=== PATIENT | female | born 1995 | race Caucasian/White ===

== ENCOUNTER 2016-07-26 08:24 | Emergency (ER) | payer OTHER ==
[~2016-07-26] VITALS: Ht 167.6 cm; Wt 72.6 kg
[2016-07-26 08:31] VITALS: BP 144/90
--- NOTE | 2016-07-26 09:11 | ED GI/GU/ABDOMINAL COMPLAINT ---
History of Present Illness General Chief Complaint: Abdominal Pain/Flank Pain Stated Complaint: MULTIPLE COMPLAINTS: ABD PAIN HX CROHNS Source: patient Exam Limitations: no limitations Vital Signs & Intake/Output Vital Signs & Intake/Output ED Intake and Output 07/27 0000 07/26 1200 Intake Total Output Total Balance Patient 160 lb Weight Weight Reported by Patient Measurement Method Allergies Coded Allergies: shellfish derived (Severe, ANAPHYLAXIS 07/26/16) Penicillins (Intermediate, RASH 07/26/16) morphine (Intermediate, HIVES 07/26/16) Triage Note: TRIAGE: 20 Y/O FEMALE PRESENTS C/O ABDOMINAL PAIN WITH HISTORY OF CROHNS. PATIENT REPORTS RED BLOOD ON TOILET PAPER WHILE WIPING AFTER BOWEL MOVEMENT. REPORTS 12/08 RIGHT LOWER ABDOMINAL PAIN SINCE THIS MORNING. HISTORY OF EPILEPSY, SEIZURES - TAKES DILANTIN. GOES TO [facility] FOR SEIZURE STUDIES. Triage Nurses Notes Reviewed? yes ? N Is pt currently ? No HPI: Patient presents for evaluation of right-sided abdominal pain that began about 2 days ago. Patient states as a severe sharp constant pain. She states she's also been having "a lot" of diarrhea that looks like "coffee grounds" and "a lot " of vomiting. She stated she had a fever 202 yesterday but no other associated cold symptoms. She took Tylenol for the fever and has been afebrile today. She was recently in [facility] as a workup for seizures. She states she was "just discharged" from a 5 day hospital stay. She contacted her GI specialist Dr. Kim in [place] and was told to go to the emergency department for evaluation. Past History Travel History Traveled to [place] past 21 day No Medical History Any Pertinent Medical History? see below for history Neurological: EPILEPSY Gastrointestinal: Crohn's disease Surgical History Surgical History: non-contributory Psychosocial History What is your primary language Citizen [place] Tobacco Use: Never used ETOH Use: denies use Illicit Drug Use: denies illicit drug use Family History Hx Contributory? No Review of Systems Review of Systems Constitutional: Reports: no symptoms. EENTM: Reports: no symptoms. Respiratory: Reports: no symptoms. Cardiovascular: Reports: no symptoms. GI: Reports: see HPI. Genitourinary: Reports: no symptoms. Musculoskeletal: Reports: no symptoms. Skin: Reports: no symptoms. Neurological/Psychological: Reports: no symptoms. Hematologic/Endocrine: Reports: no symptoms. Immunologic/Allergic: Reports: no symptoms. All Other Systems: Reviewed and Negative Physical Exam Physical Exam Gastrointestinal: see below Comments: Gen.: Well-nourished, well-developed, no acute respiratory distress. Head: Normocephalic, atraumatic. Eyes: Normal inspection bilaterally Ears: Normal inspection bilaterally Nose: Normal inspection Throat/mouth : Moist mucosa Neck: Supple, full range of motion, no goiter Heart: Regular rate and rhythm, no murmurs rubs or gallops Lungs: Clear to auscultation bilaterally with normal air entry Chest: Nontender Back: Normal range of motion Abdomen: Soft, right lower quadrant tenderness without rebound or guarding, nondistended, normal bowel sounds Extremities: Normal range of motion grossly, equal radial pulses, no cyanosis clubbing or edema Neurologic: Cranial nerves grossly intact, speech is clear Skin: warm and dry Psychiatric: Calm, cooperative, no apparent delusions or hallucinations Core Measures ACS in differential dx? No Severe Sepsis Present: No Septic Shock Present: No Progress Differential Diagnosis: appendicitis, inflamm bowel dis, pancreatitis, perforated viscous, SBO Plan of Care: PT LEFT AMA. URGED TO FOLLOW UP WITH HER DOCTORS MAXI. Initial ED EKG: none Comments: 07/26/2016 9:18:36 AM brett is now refusing an evaluation. I've advised her that if she has acute appendicitis that she could suffer perforation peritonitis and from overwhelming infection. She also stated that she was unable to take her seizure medications because of nausea and vomiting and I have pointed out that she now is at risk of having seizures which could also prove fatal. When I asked why she has decided against the emergency department evaluation she states that "I feel I can handle it". The address we have on our system is her mailing address. She states she is currently staying with her family in [place] and her home address is in [place]. She states she can take a bus home. Departure Departure Disposition: LEFT AGAINST MEDICAL ADVICE Condition: Stable Clinical Impression Primary Impression: Abdominal pain Qualifiers: Abdominal location: right lower quadrant Qualified Code: R10.31 - Right lower quadrant pain Referrals: PATIENT HAS NO PRIMARY CARE DR (PCP/Family) Additional Instructions: You are leaving the emergency department AGAINST MEDICAL ADVICE. Your abdominal pain could represent acute appendicitis that may result in perforation of your intestine, overwhelming infection and . In addition since you have been unable to tolerate your antiseizure medications, he'll also at high risk of having a seizure which could also prove fatal. You should have been evaluated in the emergency department with blood tests and a CAT scan of the abdomen to rule out any serious underlying medical condition. You could also have been treated with nausea medications to assure your ability to take your seizure medications. Please follow-up with your neurologist GI specialist and primary care physician on Wednesday for reevaluation. Return if any concerns or sudden worsening. Departure Forms: Customer Survey General Discharge Information
== END 2016-07-26 09:29 | disposition left against medical advice (07) ==
LOC: ERH 08:24
DX: R10.31 Right lower quadrant pain (principal)